=== PATIENT | female | born 1985 | race Caucasian/White ===

== ENCOUNTER 2016-05-06 17:18 | Emergency (ER) | payer MEDICARE, MEDICAID ==
[2016-05-06] MEDS ORDERED: ONDANSETRON 4 MG VIAL ONE (18:33)
[2016-05-06] MEDS ORDERED: ACETAMINOPHEN 325 MG TAB ONE (18:33)
[2016-05-06] MEDS ORDERED: SODIUM CHLORIDE 0.9% 1,000 ML ONE (18:34)
[2016-05-06] MEDS ORDERED: KETOROLAC 30 MG/ML VIAL ONE (18:34)
[2016-05-06] MEDS ORDERED: DILAUDID 1 MG/ML AMP ONE (19:19)
== END 2016-05-06 20:10 | disposition home or self-care (01) ==
LOC: ER 17:18
DX: J11.1 Influenza due to unidentified influenza virus with other respiratory manifestations (principal)
CPT/HCPCS: 36415; 71020; 80053; 81001; 85025; 87804; 87880; 96361; 96374; 96375; 99285; J1170; J1885; J2405